=== PATIENT | female | born 1980 | race Caucasian/White ===

== ENCOUNTER 2018-02-11 06:49 | Inpatient (IN) ==
[2018-02-11] MEDS ORDERED: Chlorhexidine Gluconate 2% 1 Pack (2 Cloths) TOPICAL SCH (07:42)
[2018-02-11] MEDS ORDERED: Metoprolol Tartrate 25 MG Tablet PO SCH (07:42)
[2018-02-11] MEDS ORDERED: Microfibrillar Collagen Hemostat 1 GM Packet TOPICAL ONE (07:54)
[2018-02-11] MEDS ORDERED: Sodium Chlor 0.9% Inj 500 ML IV.SIG SCH (08:00)
[2018-02-11] MEDS ORDERED: ceFAZolin 2 GM IV IV.SIG SCH (08:00)
[2018-02-11] MEDS ORDERED: Neostigmine Inj 5 MG/5 ML Syringe IV.PUSH ONE (08:13)
[2018-02-11] MEDS ORDERED: Glycopyrrolate Inj 1 MG/5 ML Syringe IV.PUSH ONE (08:13)
[2018-02-11] MEDS ORDERED: Lidocaine PF 1% Inj 5 ML Syringe OTHER ONE (08:13)
[2018-02-11] MEDS ORDERED: HYDROmorphone PF Inj 1 MG/ML Ampul ONE (08:58)
[2018-02-11] MEDS ORDERED: LORazepam 0.5 MG Tablet PO PRN (11:08)
[2018-02-11] MEDS ORDERED: oxyCODONE/Acetaminophen 10/325 Tablet PO PRN (11:08)
[2018-02-11] MEDS ORDERED: Zolpidem Tartrate 5 MG Tablet PO PRN (11:08)
[2018-02-11] MEDS ORDERED: Naloxone Inj 0.4 MG/ML Vial IV.PUSH PRN (11:12)
--- NOTE | 2018-02-11 11:17 | P.BOP ---
- Preoperative Diagnosis (1) Adnexal mass (2) Menorrhagia (3) Dysmenorrhea (4) Dyspareunia - Postoperative Diagnosis (1) Status post abdominal hysterectomy and right salpingo-oophorectomy (2) Adnexal mass (3) Dysmenorrhea (4) Dyspareunia (5) Menorrhagia Date of procedure: 02/11/18 Procedure: exam under anesthesia, exploratory laparotomy, total abdominal hysterectomy, right salpingo-oophorectomy with removal of adnexal mass (inital read on frozen : cystic teratoma); left salpingectomy Anesthesia: GETA Surgeon: Lilliam Gonzalez MD Economic Research Analyst: Ibeth Zamorano Estimated blood loss (mL): 600 IV fluids (mL): 2,300 Urine output (mL): 650 Pathology: other (right adnexal mass (right fallopian tube and ovary; uterus, cervix, left fallopian tube) Condition: stable Disposition: PACU
[2018-02-11] MEDS ORDERED: fentaNYL Citrate Inj 100 MCG/2 ML Ampul ONE (11:33)
[2018-02-11] MEDS ORDERED: *Promethazine Inj 25 MG/ML Vial PERIprocedural use ONLY ONE (11:46)
[2018-02-11] MEDS ORDERED: Morphine Sulfate Inj 2 MG/ML Vial IV.SIG ONE (12:30)
[2018-02-11] MEDS: Morphine Inj 30 MG/30 ML PCA.VIAL PCA PRN ×2 (12:40→16:01)
[2018-02-11] MEDS: Ketorolac Inj 30 MG/ML (IVP) Vial IV.PUSH SCH ×2 (12:44→19:21)
[2018-02-11] MEDS ORDERED: *Ondansetron Inj 4 MG/2 ML Vial PERIprocedural Use ONLY ONE ×2 (12:48→13:37)
--- NOTE | 2018-02-11 13:04 | MP ---
cc: Lilliam Gonzalez MD DATE OF OPERATION: PREOPERATIVE DIAGNOSES: 1. Large pelvic and adnexal mass. 2. Menorrhagia. 3. Dysmenorrhea. 4. Dyspareunia. 5. History of tubal ligation for sterilization. POSTOPERATIVE DIAGNOSES: 1. Large pelvic and adnexal mass. 2. Menorrhagia. 3. Dysmenorrhea. 4. Dyspareunia. 5. History of tubal ligation for sterilization. 6. Postoperative day number Zero. INDICATIONS FOR PROCEDURE: Karen Fuchs is a 37-year-old 2, para 2-0-0-2, who has a history since the of her last child 9 years ago, of progressively heavier more painful menstrual cycles, dyspareunia. On office exam there was an abnormality with markedly enlarged pelvic mass noted. CT scan was ordered and suspicion for approximately 9 cm benign appearing dermoid. The patient was consented for surgical intervention and as such she was scheduled. PROCEDURE PERFORMED: 1. Exam under anesthesia. 2. Exploratory laparotomy. 3. Total abdominal hysterectomy. 4. Right salpingo-oophorectomy with removal of adnexal mass. 5. Left salpingectomy. SURGEON: Lilliam Gonzalez MD BRAKE REPAIR SUPERVISOR SURGEON: Ibeth Zamorano MD TYPE OF ANESTHESIA: General endotracheal. ESTIMATED BLOOD LOSS: 600 mL. IV FLUID REPLACEMENT: 2300 mL URINE OUTPUT: 650 mL of clear urine draining in the Kidd bag at the end of procedure. COMPLICATIONS: None. COUNTS: Sponge, lap, instrument and needle counts were correct x2 at conclusion of the procedure. PROPHYLAXIS: Ancef 2 grams IV was given preoperatively. SCDs were on and functioning throughout the entire case. INTRAOPERATIVE FINDINGS: Normal external female genitalia. Cervix was smooth multiparous; palpated approximately 3 cm with intact fornices and mobile. Uterus was difficult to palpate due to a large pelvic mass approximately midway to the umbilicus, which palpated to be mobile with known right adnexal mass on imaging. 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 The uterus had multiple small fibroids. There was some evidence of possible endometriosis in the left fallopian tube and bladder flap. Minimal to moderate scarring of the bladder flap to the lower uterine segment consistent with history of previous . Left ovary with multiple small cysts, but normal appearing cortex, possible polycystic ovarian syndrome. SPECIMENS: Right adnexal mass including right fallopian tube and ovary, uterus, cervix, left fallopian tube. PROCEDURE IN DETAIL: After reviewing the informed consent, the patient was taken to the operating suite, where timeout was performed to identify the patient, the planned procedure, and any known allergies to drugs or drug products. The patient was placed in dorsal supine position and general anesthesia was administered without difficulty and found to be adequate. Exam under anesthesia was performed with results as listed above. The patient's abdomen and perineum were then prepped and draped in normal sterile fashion. Kidd catheter was placed using sterile technique. Attention was turned abdominally where a Pfannenstiel type skin incision was made with the scalpel and carried down to the underlying layer of fascia with the Bovie. The fascia was incised in the midline and incision was extended laterally with sharp dissection using Donaldson scissors. Kochers were used to elevate the superior and inferior edges of the fascial incision and rectus muscles were dissected off sharply with Donaldson scissors. Rectus muscles were in the midline. Peritoneum was identified and entered bluntly with surgeon's index finger. Incision was extended superiorly and inferiorly with immediately visualization of a large adnexal mass. Self-retaining retractor was placed. Bowel was packed out of the operative field with sterile moist lap sponges. The right adnexal mass was isolated on its vascular pedicle; doubly clamped, excised and the pedicle was suture ligated with 0-Vicryl with excellent hemostasis. Specimen was sent for frozen evaluation to pathology. Attention was then turned bilaterally to the round ligaments, which were isolated, double suture ligated with 0-Vicryl, transected and a bladder flap was developed anteriorly. Some adhesive disease of the bladder was encountered but this was able to be successfully reduced allowing visualization of the lower uterine segment and cervix. The left fallopian tube was visualized at this time; was elevated with a Junior clamp. A Radha was used to isolate it on its vascular pedicle and left fallopian tube was excised and pedicle was suture ligated with 0-Vicryl with excellent hemostasis. The left ovary remained in place. Using series of clamp, cut, and suture ligate technique, the vascularity of the uterus was secured from the cornua down to the cervix. There was a very long cervix and it was deep pelvis, so at a certain point the lower uterine segment was amputated from the cervix, with the uterus passed off the field for evaluation by pathology. The remaining cervical stump was then successfully able to be isolated, blood supply secured and specimen was amputated from the pelvis. The pelvis was then irrigated copiously with warm sterile saline. The vaginal cuff was run in a running layer with #1-Vicryl with excellent hemostasis noted. Bryan was placed on all pedicles to ensure continued hemostasis. The sterile laps and retractor were removed. The peritoneum was closed in a running fashion with 2-0 chromic. #1 Vicryl suture was used to close the fascia in running layer. Subcutaneous tissue was irrigated and closed in a an interrupted fashion with 2-0 chromic. The skin was cleaned and dried, and closed in a subcuticular fashion with 4-0 Monocryl. The skin was cleaned and dried and Steri-Strips were placed. The patient tolerated the procedure well without complication. Procedure concluded. Patient was awoken from anesthesia without complication. DISPOSITION: Patient's estimated length of stay is 1-2 postoperative days. She will be admitted overnight. MD RICHARD Cleary/humza , 11:23 AM , 11:34 AM [email or web address]
[2018-02-11] MEDS ORDERED: Scopalamine 1.5 MG Patch T-DERMAL ONE (14:00)
[2018-02-11] MEDS: Senna/Docusate Sodium 8.6/50 MG Tablet PO SCH (21:51)
[2018-02-12] MEDS: Ketorolac Inj 30 MG/ML (IVP) Vial IV.PUSH SCH ×2 (00:52→06:29)
[2018-02-12 02:53] VITALS: BP 100/62; O2SAT 97
[2018-02-12 05:55] LABS: Baso % (Auto) 0.3 % (0.0-2.0); Eos % (Auto) 0.2 % (0.0-4.0); Hematocrit 31.9 % (35.0-46.0); Hemoglobin 10.5 gm/dL (11.6-15.3); Lymph # (Auto) 2.1 th/mm3 (1.0-4.8); Mean Corpuscular HGB Conc 32.9 % (32.0-36.0); Mean Corpuscular Hemoglobin 25.8 pg (27.0-34.0); Mean Corpuscular Volume 78.5 fL (80.0-100.0); Mean Platelet Volume 8.3 fL (7.0-11.0); Mono # (Auto) 1.3 th/mm3 (0.0-0.9); Mono % (Auto) 9.8 % (0.0-8.0); Neut # (Auto) 9.7 th/mm3 (1.8-7.7); Neut % (Auto) 73.7 % (16.0-70.0); Platelet Count 367 th/mm3 (150-450); Red Blood Count 4.06 mil/mm3 (4.00-5.30); Red Cell Distribution Width 18.5 % (11.6-17.2); White Blood Count 13.1 th/mm3 (4.0-11.0)
[2018-02-12 06:17] LABS: Glomerular Filtration Rate Greater Than 89 mL/min (>89)
--- NOTE | 2018-02-12 08:33 | P.PNOB ---
Assessment and Plan - Postoperative Procedures Operation Date: 02/11/18 08:30 Actual Procedures Side Surgeon p Hysterectomy, Total Abdominal, Right Oophorectomy, Bilateral Salpingectomy, Exam Under Anesthesia Lilliam Gonzalez MD Postoperative day: 1 Postoperative status: doing well Postoperative plan: routine post-op care, see orders, ambulate, advance diet, voiding trials, discharge (if meeting criteria) - Time Spent With Patient Total time spent is greater than 50% in coordination of care (as documented) at patient's floor/unit and/or counseling patient: 25 - 35 minutes Subjective Interval history: Feeling ok, used PERSONALIZED LIVING ASSISTANT sparingly overnight, arroyo just removed, not yet up to void , overnight pain well controlled with IV medications, tolerated clear diet, desires advance to regular breakfast. No flatus yet. Physical Exam Vital signs: Temp Pulse Resp BP Pulse Ox 98.3 F 77 18 100/62 97 02/12/18 02:52 02/12/18 02:52 02/12/18 02:52 02/12/18 02:52 02/12/18 02:52 - Constitutional no acute distress - Routine Chest/Breast/Axilla Exam Chest wall: Absent: tenderness, mass - Routine Respiratory Exam Present: CTA bilaterally. Absent: accessory muscle use - Routine Abdominal Exam Present: soft, tenderness (as expected around incision). Absent: distended Comments: bandage removed, steri-strips in place, clean dry intact - Detailed Neurological Exam: Coma Scale Eye Opening: Spontaneous Verbal Response: Oriented Motor Response: Obey commands [place] Coma Scale Total: 15 - Urinary Catheter Management Indwelling Urethral Catheter Cath placed during this visit: yes, but has since been removed by the nurse Urethral indwelling: No Insertion date: 02/11/18 Insertion time: 08:20 Removal date: 02/12/18 Removal time: 06:10 Results - Labs CBC & Chem 7: 02/12/18 05:13 02/12/18 05:13 Labs: Laboratory Results - last 24 hr 02/11/18 02/12/18 02/12/18 08:33 05:13 05:13 WBC 13.1 H RBC 4.06 Hgb 10.5 L Hct 31.9 L MCV 78.5 L MCH 25.8 L MCHC 32.9 RDW 18.5 H Plt Count 367 MPV 8.3 Neut % (Auto) 73.7 H Lymph % (Auto) 16.0 [place] % (Auto) 9.8 H Eos % (Auto) 0.2 Baso % (Auto) 0.3 Neut # (Auto) 9.7 H Lymph # (Auto) 2.1 [place] # (Auto) 1.3 H Eos # (Auto) 0.0 Baso # (Auto) 0.0 WBC Differential . Differential Comment Auto diff final Creatinine 0.63 Estimated GFR Greater than 89 Blood Type O Negative Antibody Screen Negative MTS Gel Crossmatch See Detail
[2018-02-12 08:37] VITALS: PULSE 74; RESP 20; TEMP 98
--- NOTE | 2018-02-12 08:39 | P.DS ---
Date of admission: 02/11/18 11:08 Primary care physician: Lalit Bello Attending physician on discharge: Lilliam Gonzalez Anticipated date of discharge: 02/12/18 Brief History from admission: 37 yo with history of heavy painful menses, dyspareunia and pelvic mass admitted for scheduled hysterectomy, right salpingo-oophorectomy, procedures as indicated. Patient update on day of discharge: Once pt was ambulating, voiding, tolerating diet and pain was well controlled with oral meds patient was discharged to home with explicit postop instructions. DS: Diagnosis - Discharge Diagnosis (1) Status post abdominal hysterectomy and right salpingo-oophorectomy Status: Acute Diagnosis: Principal (2) Adnexal mass Status: Chronic Diagnosis: Principal (3) Dysmenorrhea Status: Chronic Diagnosis: Principal (4) Dyspareunia Status: Chronic Diagnosis: Principal (5) Menorrhagia Status: Chronic Diagnosis: Principal DS: Medications - Discharge Medications Prescriptions: ibuprofen 600 mg PO Q6H PRN #40 tab PRN Reason: Pain Scale 1 To 2 oxycodone-acetaminophen 1 tab PO Q4H PRN #18 tab PRN Reason: Acute Pain sennosides-docusate sodium [Senna Plus] 1 tab PO BID PRN #20 tab PRN Reason: Constipation DS: Summary Hospital Course: Pt had uncomplicated intraoperative course with frozen pathology read on pelvic mass benign cystic teratoma. Overnight POD#0 pt did well, by POD#1 diet was advanced, pt transitioned from IV to oral pain meds. Once pt's pain was well controlled, she had voided, tolerated diet, ambulated and passed flatus she was discharged to home with specific instructions for postop care and office follow- up. - Time Spent with Patient Total time spent providing and/or coordinating discharge services: Greater than 30 minutes - Quality: AMI Clinical Trial Participant: No - Quality: VTE Deep Vein Thrombosis/Pulmonary Embolism Present on Admission: No Exam Vital signs: Vital Signs 02/11/18 11:28 02/11/18 11:30 02/11/18 11:45 Temperature 98.4 F 98.4 F 98.4 F Pulse Rate 74 71 81 Respiratory Rate 14 12 18 Blood Pressure 143/70 H 135/71 129/73 Pulse Oximetry 99 99 99 02/11/18 12:00 02/11/18 12:15 02/11/18 12:30 Temperature 98.4 F 98.4 F 98.4 F Pulse Rate 76 78 77 Respiratory Rate 18 18 14 Blood Pressure 128/70 128/71 129/73 Pulse Oximetry 99 100 100 02/11/18 13:01 02/11/18 14:50 02/11/18 18:00 Temperature 98.4 F 97.6 F 98.0 F Pulse Rate 79 77 78 Respiratory Rate 14 17 16 Blood Pressure 118/68 122/82 117/81 Pulse Oximetry 99 98 95 02/11/18 19:10 02/11/18 21:30 02/11/18 23:06 Temperature 98.9 F Pulse Rate 89 Respiratory Rate 16 16 18 Blood Pressure 105/61 Pulse Oximetry 95 02/12/18 00:52 02/12/18 02:20 02/12/18 02:52 Temperature 98.3 F Pulse Rate 77 Respiratory Rate 18 16 18 Blood Pressure 100/62 Pulse Oximetry 97 Intake & Output 02/11/18 02/12/18 02/12/18 18:59 06:59 18:59 Intake Total 3450 / 3450 1100 / 1100 Output Total 1400 / 1400 2150 / 2150 Balance 2050 / 2049 -1050 / -1050 Weight 100.5 kg Intake: IV 2150 / 2150 1100 / 1100 LR 1000 mL Inj 1,000 ML @ 75 1000 / 1000 1000 / 1000 mls/hr IV.CONT .[id number] MARITO Rx# :[id number] Ofirmev Inj 1,000 mg In 100 ml 100 / 100 100 / 100 @ 400 mls/hr IV.SIG Q6H [facility]ITO Rx# :[id number] LR 1000 mL Inj 1,000 ML @ 30 1000 / 1000 mls/hr IV.SIG .Q24H MARITO Rx#: [id number] Ancef 2 GM Premix Inj 2 gm In 50 / 50 50 ml @ 100 mls/hr IV.SIG FOIL OPERATOR MARITO Rx#:[id number] Anesthesia Amount 1300 / 1300 Output: Estimated Blood Loss 500 / 500 Urine Amount (Catheter) 900 / 900 2150 / 2150 Indwelling Urethral Catheter 900 / 900 2149 / 2149 Other: Date of Last Bowel Movement 02/10/18 Weight On Admission 100.5 kg - Constitutional no acute distress - Routine HEENT Exam Head: Present: normocephalic, atraumatic Eye: Present: EOMI, PERRL ENT: Present: mucous membranes moist, dentition normal - Routine Neck Exam Present: supple, full ROM - Routine Chest/Breast/Axilla Exam Chest wall: Absent: tenderness, mass - Routine Respiratory Exam Present: CTA bilaterally. Absent: accessory muscle use - Routine Cardiovascular Exam Present: RRR. Absent: bradycardia - Routine Abdominal Exam Present: soft. Absent: distended Comments: incision c/d/i with steri strips in place - Routine Extremities Exam Absent: cyanosis, clubbing, edema - Routine Skin Exam Present: intact. Absent: erythema - Routine Neurological Exam Present: alert, oriented X3 Results Procedures completed during hospitalization: exam under anesthesia, exploratory laparotomy, total abdominal hysterectomy, right salpingo-oophorectomy, left salpingectomy Pending studies at discharge: none Labs on day of discharge: Labs from last 24 hours 02/12/18 02/12/18 02/11/18 05:13 05:13 08:33 WBC 13.1 H RBC 4.06 Hgb 10.5 L Hct 31.9 L MCV 78.5 L MCH 25.8 L MCHC 32.9 RDW 18.5 H Plt Count 367 MPV 8.3 Neut % (Auto) 73.7 H Lymph % (Auto) 16.0 [place] % (Auto) 9.8 H Eos % (Auto) 0.2 Baso % (Auto) 0.3 Neut # (Auto) 9.7 H Lymph # (Auto) 2.1 [place] # (Auto) 1.3 H Eos # (Auto) 0.0 Baso # (Auto) 0.0 WBC Differential . Differential Comment Auto diff final Creatinine 0.63 Estimated GFR Greater than 89 Blood Type O Negative Antibody Screen Negative MTS Gel Crossmatch See Detail Discharge Plan - Discharge Disposition Patient Disposition: 01 Discharge Home - Discharge Condition Condition: Good - Discharge Order Discharge Orders: Discharge Order (Routine); Ordered 02/12/18 Ordered By: Lilliam Gonzalez - Discharge Details Anticipated Discharge Date: 02/12/18 Discharge Comment: RTO 1 week for postop wound check with Dr. Gonzalez - Physicians Team Primary Care Provider: Lalit Bello Attending Provider: Lilliam Gonzalez - Rxs /Orders / Referrals /Forms Prescriptions: New ibuprofen 600 mg Tablet 600 mg PO Q6H PRN (Reason: Pain Scale 1 To 2) Qty: 40 RF: 1 oxycodone-acetaminophen 5-325 mg Tablet 1 tab PO Q4H PRN (Reason: Acute Pain) Qty: 18 RF: 0 sennosides-docusate sodium [Senna Plus] 8.6-50 mg Tablet 1 tab PO BID PRN (Reason: Constipation) Qty: 20 RF: 1 Continue omeprazole 40 mg Capsule,Delayed Release(Dr/Ec) 40 mg PO HS Referrals: Lalit Bello MD [Primary Care Provider] - See Instructions - Discharge Instructions Patient Printed Instructions: Hysterectomy (DC) - Post Discharge Care Plan Care Plan Goals: We want you to have a wonderful recovery! Please Report the Following Symptoms to Your Doctor: -Temperature above 100.5 degrees -Redness of incision or excessive or foul smelling drainage -Unusual pain or calf pain -Increased vaginal bleeding -Painful or difficulty urinating Goals to Promote Your Health * To prevent worsening of your condition and complications * To maintain your health at the optimal level Directions to Meet Your Goals Take your medications as prescribed Follow your dietary instruction Follow activity as directed Ensure plenty of rest for recovery Drink fluids for hydration Keep your appointments as scheduled Take your immunizations and boosters as scheduled If your symptoms worsen call your RENAL CASE MANAGER Physician, or go to an Urgent Care Center or Emergency Room Smoking is Dangerous to your health. Avoid second hand smoke Call the 24-hour crisis hotline for domestic abuse at
[2018-02-12] MEDS: Senna/Docusate Sodium 8.6/50 MG Tablet PO SCH (12:36)
[2018-02-12] MEDS ORDERED: Ibuprofen 600 MG Tablet PO PRN ×2 (13:00)
== END 2018-02-12 15:58 | disposition home or self-care (01) ==
LOC: HSDC 06:49 → EDSTATUS 08:30 → HSDI 11:08 → H1EA 14:31
PROVIDERS: ADMIT Obstetrics & Gynecology; ATTEND Obstetrics & Gynecology